=== PATIENT | female | born 1990 | race Hispanic/Latino ===

== ENCOUNTER 2025-07-19 16:19 | Day surgery (SDC) | payer OTHER, SELFPAY ==
[2025-07-19 16:57] VITALS: BMI 29.6
[2025-07-19] MEDS ORDERED: hydrALAZINE 20 MG/ML VIAL SLOW IVP PRN (17:15)
[2025-07-19 17:50] LABS: Glucose, Urine (Dipstick) Normal (Negative); Leukocyte 500 (Negative); Protein, Urine (Dipstick) 100 mg/dl (Neg-Trace); Specific Gravity, Urine 1.015 (1.005-1.030)
[2025-07-19 18:01] LABS: Bacteria/HPF 4+ HPF (None Seen); CAUTI Indications for Culture Pregnancy; Mucous/LPF 1+ LPF (<2+); WBC/HPF Greater than 50 HPF (0-3)
[2025-07-19 18:02] LABS: Urine Culture Reflex Yes Yes
[2025-07-19] MEDS: cefTRIAXone (ROCEPHIN) 1 GM VIAL IM SCH (18:34)
== END 2025-07-19 20:01 | disposition home or self-care (01) ==
LOC: CSHERS 16:19 → CSHLD/OP 20:01
PROVIDERS: ATTEND Family Medicine
DX: O23.43 Unspecified infection of urinary tract in pregnancy, third trimester (principal); N39.0 Urinary tract infection, site not specified; O99.891 Other specified diseases and conditions complicating pregnancy; R31.9 Hematuria, unspecified; Z3A.28 28 weeks gestation of pregnancy
CPT/HCPCS: 76770; 81001; 87077; 87086; 87186; J0696